=== PATIENT | male | born 1960 | race Caucasian/White ===

== ENCOUNTER 2023-11-23 13:58 | Inpatient (IN) | payer OTHER ==
[2023-11-23 15:11] VITALS: BMI 22.8
[2023-11-23] MEDS ORDERED: diazePAM 5 MG TABLET PO PRN (16:39)
[2023-11-23] MEDS ORDERED: LOPERAMIDE HCL 2 MG CAPSULE PO PRN (16:40)
[2023-11-23] MEDS ORDERED: guaiFENesin 600 MG TABLET.ER (FP) PO PRN (16:40)
[2023-11-23] MEDS ORDERED: BENZOCAINE/MENTHOL (CHLORASEPTIC ) LOZENGE MM PRN (16:40)
[2023-11-23] MEDS ORDERED: BENZONATATE 200 MG CAPSULE PO PRN (16:40)
[2023-11-23] MEDS ORDERED: IBUPROFEN 400 MG TABLET (FP) PO PRN (16:40)
[2023-11-23] MEDS ORDERED: POLYETHYLENE GLYCOL (HEALTHYLAX) 3350 17 GM PACKET PO PRN (16:40)
[2023-11-23] MEDS ORDERED: MAG HYDROX/AL HYDROX/SIMETH 30 ML UNIT-DOSE CUP PO PRN (16:40)
[2023-11-23] MEDS ORDERED: diazePAM 5 MG TABLET ONE (16:49)
[2023-11-23] MEDS: diazePAM 5 MG TABLET PO SCH (16:51)
[2023-11-23] MEDS ORDERED: ACETAMINOPHEN 325 MG TABLET (FP) ONE (17:26)
[2023-11-23] MEDS: ACETAMINOPHEN 325 MG TABLET (FP) PO PRN (17:32)
[2023-11-23] MEDS: METHOCARBAMOL 500 MG TABLET PO PRN (22:27)
[2023-11-23] MEDS: THIAMINE 100 MG TABLET PO SCH (22:28)
[2023-11-23] MEDS: MELATONIN 5 MG TABLETS PO SCH (22:28)
[2023-11-24] MEDS: PRENATAL VITAMINS W/ FOLIC ACID TABLET (FP) PO SCH (09:21)
[2023-11-24] MEDS: ONDANSETRON *ODT* 4 MG TABLET SL PRN (09:24)
[2023-11-24] MEDS: IBUPROFEN 600 MG TABLET (FP) PO PRN (09:24)
[2023-11-24] MEDS: MAGNESIUM HYDROX 2400MG/30ML ORAL SUSPENSION 30 ML CUP PO PRN (10:27)
[2023-11-24] MEDS: PNEUMOC 20-VAL CONJ-DIP CRM/PF 0.5 ML SYRINGE IM ONE (11:22)
[2023-11-24 12:01] LABS: HEMATOCRIT 41.3 % (35.4-49); HEMOGLOBIN 13.8 GM/dL (11.7-16.9); MCH 30.7 pg (25.7-33.7); MCHC 33.4 g/dl (32.0-35.9); MEAN CELL VOLUME 91.8 fl (80-96); MEAN PLT VOLUME 8.2 fl (7.5-11.1); PLATELET COUNT 226 10^3/uL (134-434); RDW 14.5 % (11.9-15.9); WHITE BLOOD COUNT 5.4 K/mm3 (4.0-10.0)
[2023-11-24 12:15] LABS: CHLORIDE 106 mmol/L (98-107); POTASSIUM 3.9 mmol/L (3.5-5.1); SODIUM 140 mmol/L (136-145)
[2023-11-24 12:22] LABS: ALBUMIN 3.9 g/dl (3.4-5.0); ANION GAP 7 mmol/L (4-13); BLOOD UREA NITROGEN 9.8 mg/dL (7-18); CO2 26 mmol/L (21-32); GLUCOSE,RANDOM 99 mg/dL (74-106)
[2023-11-24 12:25] LABS: CREATININE 0.8 mg/dL (0.55-1.3); SGOT/AST 30 U/L (15-37); SGPT/ALT 26 U/L (13-61)
[2023-11-24 12:26] LABS: BILIRUBIN,TOTAL 1.5 mg/dL (0.2-1); TOT PROT 7.1 g/dl (6.4-8.2)
[2023-11-24 12:28] LABS: ALK PHOS 53 U/L (45-117)
[2023-11-24] MEDS: DICYCLOMINE HCL 10 MG CAPSULE PO PRN (12:36)
[2023-11-24] MEDS: TRIMETHOBENZAMIDE HCL 200MG/2ML INJ IM PRN (13:43)
[2023-11-24] MEDS: hydrOXYzine PAMOATE 25 MG CAPSULE (FP) PO PRN (16:39)
[2023-11-24] MEDS: MELATONIN 5 MG TABLETS PO SCH (22:41)
[2023-11-25] MEDS: diazePAM 5 MG TABLET PO SCH (06:21)
[2023-11-25] MEDS: BISMUTH SUBSALICYLATE 524 MG/30 ML PO PRN (18:19)
[2023-11-26] MEDS: diazePAM 5 MG TABLET PO SCH (05:47)
[2023-11-26 09:15] VITALS: BP 130/88; PULSE 79; RESP 17; TEMP 98.7
[2023-11-27] MEDS ORDERED: diazePAM 5 MG TABLET PO ONE (06:00)
== END 2023-11-26 12:35 | disposition home or self-care (01) | DRG 775 ==
LOC: YASAS 13:58 → Y6N 16:40
PROVIDERS: ADMIT Allergy & Immunology; ATTEND Surgery
PROC: HZ2ZZZZ Detoxification Services for Substance Abuse Treatment (ICD-10-PCS; principal; 2023-11-23)
DX: F10.230 Alcohol dependence with withdrawal, uncomplicated (principal); F10.282 Alcohol dependence with alcohol-induced sleep disorder; F10.280 Alcohol dependence with alcohol-induced anxiety disorder; F10.24 Alcohol dependence with alcohol-induced mood disorder; R76.11 Nonspecific reaction to tuberculin skin test without active tuberculosis; R11.2 Nausea with vomiting, unspecified; Z87.19 Personal history of other diseases of the digestive system
CPT/HCPCS: 36415; 80053; 80305; 80307; 82150; 82247; 83690; 85027; 86780; 93005; 93010; Q0162